=== PATIENT | male | born 1965 | race Caucasian/White ===

== ENCOUNTER 2019-01-15 20:06 | Observation (INO) ==
[2019-01-15] MEDS ORDERED: ACETAMINOPHEN 500 MG TAB PO STA (20:42)
[2019-01-15 20:52] LABS: Basophils # (auto) 0.03 K/uL (0-0.2); Basophils % (auto) 0.4 %; Eosinophils % (auto) 2.5 %; Hematocrit (blood only) 39.8 % (42-52); Hemoglobin 12.2 g/dL (14.0-18.0); Immature Granulocytes # (auto) 0.02 K/uL (0.00-0.02); Immature Granulocytes % (auto) 0.3 %; Lymphocytes # (auto) 2.56 K/uL (1.2-3.4); Lymphocytes % (auto) 32.2 %; Mean Corpuscular Hgb Conc 30.7 g/dL (32-36); Mean Corpuscular Volume 72.4 fL (80-100); Mean Platelet Volume 9.4 fL (7.4-10.4); Monocytes # (auto) 0.52 K/uL (0.11-0.59); Monocytes % (auto) 6.5 %; Neutrophils # (auto) 4.61 K/uL (1.4-6.5); Neutrophils % (auto) 58.1 %; Platelet Count 372 K/uL (130-400); RDW Coefficient of Variation 17.7 % (11.5-14.5); RDW Standard Deviation 46.9 fL (36.4-46.3); White Blood Count 7.94 K/uL (4.8-10.8)
[2019-01-15 21:06] LABS: Alanine Aminotransferase 22 U/L (12-78); Albumin Level 3.3 gm/dl (3.4-5.0); Aspartate Aminotransferase 17 U/L (15-37); BUN Creatinine Ratio 7.4 (10-20); Blood Urea Nitrogen 7 mg/dl (7-18); Calcium 8.5 mg/dl (8.5-10.1); Carbon Dioxide 29 mmol/L (21-32); Chloride 107 mmol/L (98-107); Est GFR (African American) 102.9; Est GFR (Non-African American) 88.8; Glucose 96 mg/dl (70-99); Potassium 3.9 mmol/L (3.5-5.1); Sodium 142 mmol/L (136-145)
--- NOTE | 2019-01-15 21:06 | XRay Report ---
SINGLE VIEW CHEST CLINICAL HISTORY: Atypical chest pain. FINDINGS: An AP, portable, upright chest radiograph is obtained. No prior studies are available for c omparison at the time of dictation. The examination is degraded by portable technique and patient ro tation. The cardiomediastinal silhouette is unremarkable. There is elevation of right hemidiaphragm. The lungs and pleural spaces are clear. No pneumothorax is seen. The bony thorax is grossly intact. IMPRESSION: No active disease in the chest. Electronically signed by: Bertin Trejo M.D. 01/15/2019 9:05 PM
[2019-01-15 21:07] LABS: Partial Thromboplastin Ratio 0.9; Partial Thromboplastin Time 25.4 Seconds (21.0-31.0); Prothrombin Time 10.1 Seconds (9.0-12.0)
[2019-01-15 21:10] LABS: Albumin Globulin Ratio 0.8 (0.9-2); Alkaline Phosphatase 123 U/L (45-117); Bilirubin,Total 0.4 mg/dl (0.2-1); Globulin 4.2 gm/dl (2.5-4.0); Total Protein 7.5 gm/dl (6.4-8.2); Troponin I < 0.015 ng/ml (0-0.045)
[2019-01-15 21:35] LABS: Anisocytosis Present; Ovalocytes 1+
--- NOTE | 2019-01-15 23:18 | History & Physical Report ---
Date of Service January 15, 2019 Assessment & Plan (1) Angina at rest: 53-year-old male here to evaluate his chest pain. His care is usually in [place] and I do not currently have access to those records. Assessment: Unstable angina Plan -Monitor on telemetry -Echo in the a.m. -Trend troponins. Initial troponin negative. -Continue home medications including baby aspirin, Lopressor 50 mg twice daily, CHF medications as below. Does not appear to be in a CHF exacerbation given exam, chest x-ray. FEN/GI: No fluids indicated at this time. Cautioned against fluids given CHF. DVT ppx: SCDs CODE STATUS: Full code as discussed with patient DISPO: Telemetry (2) CHF (congestive heart failure): Unsure if this is preserved or reduced ejection fraction. Patient did see his services mgr 3 months ago and an echocardiogram was apparently done then and patient says there were no changes. -Continue home torsemide 100 mg daily, Klor-Con 40 mEq twice daily, Lopressor 50 twice daily. -Echo in a.m. (3) Obesity: Recommend ongoing diet and exercise. (4) Depression: Continue home Abilify 2 mg daily and Cymbalta 60 mg daily. (5) Seasonal allergies: Continue home Singulair and Ventolin as needed (6) Nocturnal hypoxia: On 2 L at night, continue. (7) Gout: Allopurinol. History of Present Illness Chief Complaint: Chest pain Primary Care Provider: [facility] This is a 53-year-old male with past medical history significant for congestive heart failure who is followed by Dr. Lees and Dr. Veronica services mgr in [place]. He states he was in his usual state of health until earlier this evening he was sitting watching television when he suddenly felt a pressure in his left chest that radiated down his left arm. He says he began to have be short of breath during this and so put on his oxygen, which he normally wears as at night 2 L. He was sitting there in his partner Alis noticed he was uncomfortable and asked him what the matter was. He told her and she called EMS. He states he took a nitro pill at home that did not resolve the pain, but the second 1 he got in route did help resolve the pain. His chest pain lasted 45 minutes. Currently he is chest pain-free. Of note, he says he saw his services mgr 3 months ago and an echocardiogram was done then which he says was stable. He was diagnosed with CHF 2 years ago after having gained 100 pounds says the patient. He admits he does not follow a low- salt diet and he is not aware of a fluid restriction. He denies any other symptoms like abdominal pain, visual changes, headache, diarrhea, numbness and tingling in his extremities. Of note he says he is at his dry weight. He is compliant with all his medications. He is not diabetic. ED course: Normotensive, not tachycardic not febrile, not hypoxic. CBC remarkable for microcytic anemia, H&H 12.2/39.8. Coag normal. Chemistry unremarkable, negative troponin x1. Chest x-ray shows no acute findings. EKG reviewed and shows sinus rhythm 91 rate, QTC 462, occasional PVCs, no appreciable ST changes. Given Tylenol in the ED. Past medical history: As above Surgical history: Right hip replacement, nephrectomy Social history: Disabled, unemployed. Lives with his partner of 11 years Alis. Denies drinking or illicit drug use. He does chew snuff, has since age 12. One can a day. Has never considered quitting. Allergies Allergy/AdvReac Type Severity Reaction Status Date / Time Cephalosporins Allergy Mild SWELLING Unverified 03/15/11 17:50 Home Medications Home Medications Medication Instructions Recorded Confirmed Type albuterol sulfate [Ventolin HFA] 2 puff INHALATION BID 01/15/19 01/15/19 History allopurinol 100 mg PO BID 01/15/19 01/15/19 History aripiprazole [Abilify] 2 mg PO DAILY 01/15/19 01/15/19 History aspirin [Aspir-81] 81 mg PO DAILY 01/15/19 01/15/19 History calcitriol [Rocaltrol] 0.25 mcg PO DAILY 01/15/19 01/15/19 History cholecalciferol (vitamin D3) 1,000 unit PO DAILY 01/15/19 01/15/19 History [Vitamin D3] duloxetine [Cymbalta] 60 mg PO DAILY 01/15/19 01/15/19 History metoprolol tartrate [Lopressor] 50 mg PO BID 01/15/19 01/15/19 History montelukast [Singulair] 10 mg PO DAILY 01/15/19 01/15/19 History potassium chloride [Klor-Con M20] 40 meq PO BID 01/15/19 01/15/19 History torsemide 100 mg PO DAILY 01/15/19 01/15/19 History Past Med/Surg History Medical History Gout (Chronic) Nocturnal hypoxia (Chronic) On 2 L at night Depression (Chronic) Obesity (Chronic) CHF (congestive heart failure) (Chronic) Heart failure (Chronic) Surgical History History of nephrectomy, unilateral History of total right hip arthroplasty Social History Preferred Language: Armenian Beliefs That Will Affect Care: None marital status details: Lives with his partner Alis of 11 years. Current Living Situation: Significant Other current occupational status: unemployed and disabled Other Information That Helps Us Care for You: No Feels Safe at Home: Yes Safety Concerns: Feels Safe At This Time Smoking Status: Never smoker Hx Alcohol Use: No Hx Substance Use: No Review of Systems All systems reviewed & are unremarkable except as noted in HPI & below Physical Exam Vital Signs (Past 24 Hours): Last Vital Signs Temp 36.9 C 01/15/19 20:15 Pulse 79 01/15/19 22:42 Resp 19 01/15/19 22:42 BP 142/78 H 01/15/19 22:42 Pulse Ox 97 01/15/19 23:02 Physical Exam: Vitals noted as above and within normal limits with the e xception of very mild hypertension. GENERAL: Awake, alert to person, place, and time, nontoxic-appearing, in no distress HENT: Normocephalic, atraumatic. . Mucus membranes appear moist. EYES: Normal conjunctiva. Sclera non-icteric. EOMI. NECK: Supple. Full range of motion. No JVD RESPIRATORY: Clear to auscultation. Normal work of breathing. CARDIAC: Regular rate, normal rhythm. Extremities warm and well perfused, 2+ radial pulses bilaterally; 2+ posterior tibialis pulses bilaterally. CHEST: Nontender to palpation over anterior chest. ABDOMEN: Soft, non-distended. No tenderness to palpation in all four quadrants. No rebound or guarding. No masses. Bowel sounds are normal. LOWER EXTREMITIES: Inspection of calves reveal equal size bilaterally. They are non-tender. Trace edema. No discoloration. NEURO: No focal gross focal motor deficits noted. Sensation in tact. CN II-XII grossly in tact. SKIN: Rash not present. No jaundice noted. Significant lesions not present. PSYCH: Appropriate mood and affect. Cooperative. Exam as done by Suzie Mcgovern MD, Statistical Machine Mechanic. Results & Data Laboratory Results 01/15/19 01/15/19 01/15/19 Range/Units 20:13 20:13 20:13 WBC 7.94 (4.8-10.8) K/uL RBC 5.50 (4.7-6.1) M/uL Hgb 12.2 L (14.0-18.0) g/dL Hct 39.8 L (42-52) % MCV 72.4 L (80-100) fL MCH 22.2 L (25-34) pg MCHC 30.7 L (32-36) g/dL RDW Std Deviation 46.9 H (36.4-46.3) fL RDW Coeff of Jerry 17.7 H (11.5-14.5) % Plt Count 372 (130-400) K/uL MPV 9.4 (7.4-10.4) fL Immature Gran % (Auto) 0.3 % Neut % (Auto) 58.1 % Lymph % (Auto) 32.2 % Garvin % (Auto) 6.5 % Eos % (Auto) 2.5 % Baso % (Auto) 0.4 % Immature Gran # (Auto) 0.02 (0.00-0.02) K/uL Neut # (Auto) 4.61 (1.4-6.5) K/uL Lymph # (Auto) 2.56 (1.2-3.4) K/uL Garvin # (Auto) 0.52 (0.11-0.59) K/uL Eos # (Auto) 0.20 (0-0.5) K/uL Baso # (Auto) 0.03 (0-0.2) K/uL Anisocytosis Present Ovalocytes 1+ PT 10.1 (9.0-12.0) Seconds INR 1.0 (0.9-1.1) APTT 25.4 (21.0-31.0) Seconds PTT Ratio 0.9 Sodium 142 (136-145) mmol/L Potassium 3.9 (3.5-5.1) mmol/L Chloride 107 (98-107) mmol/L Carbon Dioxide 29 (21-32) mmol/L Anion Gap 6.0 (3-11) BUN 7 (7-18) mg/dl Creatinine 0.97 (0.6-1.4) mg/dl Est Cr Clr Drug Dosing 99.0 ml/min Est GFR ( Amer) 102.9 Est GFR (Non-Af Amer) 88.8 BUN/Creatinine Ratio 7.4 L (10-20) Glucose 96 (70-99) mg/dl Calcium 8.5 (8.5-10.1) mg/dl Magnesium 2.0 (1.8-2.4) mg/dl Total Bilirubin 0.4 (0.2-1) mg/dl AST 17 (15-37) U/L ALT 22 (12-78) U/L Alkaline Phosphatase 123 H (45-117) U/L Troponin I < 0.015 (0-0.045) ng/ml Total Protein 7.5 (6.4-8.2) gm/dl Albumin 3.3 L (3.4-5.0) gm/dl Globulin 4.2 H (2.5-4.0) gm/dl Albumin/Globulin Ratio 0.8 L (0.9-2) Lipase 188 (73-393) U/L Supervising Physician Co-Signing Physician Notes Attending addendum: I have physically seen this patient, have supervised the medical residents activities, and agree with the H&P unless as otherwise noted. Assessment and Plan: Chest pain/hypertension/CHF-- The patient will be admitted to telemetry for serial cardiac enzymes, serial EKG's, cardiac rhythm monitoring and a 2-D echocardiogram with Dopplers. Continue aspirin, Lopressor, torsemide and potassium. Consult cardiology. Coordinate with his services mgr in [place]. Depression-- Continue Abilify and Cymbalta. Remainder of orders and notations as noted. Resident Activity Tracking Resident Involvement: Resident Care Provided Care Provided: Adult Hospital Medicine
[2019-01-16] MEDS ORDERED: POLYETHYLENE (MIRALAX) 17 GM PACK PO PRN (00:48)
[2019-01-16] MEDS ORDERED: MAGNESIUM HYDROXIDE SUSP 30 ML UDC PO PRN (00:48)
[2019-01-16] MEDS ORDERED: ALUMINUM/MAGNESIUM SUSP 30 ML UDC PO PRN (00:48)
[2019-01-16] MEDS ORDERED: ACETAMINOPHEN 325 MG TAB PO PRN (00:48)
[2019-01-16] MEDS ORDERED: NITROGLYCERIN SL 0.4 MG/TAB TAB SL PRN (00:48)
[2019-01-16] MEDS ORDERED: MoRPHine SULFATE 2 MG/ML CARP IV ONE (01:03)
--- NOTE | 2019-01-16 01:33 | Emergency Department Note ---
Entered by Camille Badillo acting as a scribe for History of Present Illness General Chief complaint: Chest Pain Stated complaint: CHEST PAIN Time Seen by Provider: 01/15/19 20:24 Source: patient and family () History of Present Illness Onset (ago): hour(s) (several) Location: chest (left-sided) Radiation: extremity (left arm) Pain Consistency: + now resolved Relieved By: + medication (Aspirin; Nitro) Associated symptoms: + fever/chills (positive fever; negative chills), + headaches and + shortness of breath Treatments prior to arrival: aspirin and other (Nitro) The patient is a 53 year old white male w/ PMHx of heart failure who presents to the ED w/ CC of now resolved left-sided chest pain beginning several hours prior to arrival. The patient states that his pain was radiating down his left arm. He states that he had shortness of breath and headache at this time. The patient states that he has had fevers, but denies chills. He states that he was given 325 mg of aspirin and 1 Nitro prior to arrival for his symptoms. The patient denies recent swelling in his legs. Per the patient's , the patient recently had hip surgery. The patient's states that the patient was seen in the [place] ED 2 days ago for possible infection, but states that it is unclear whether the patient has an infection or not. The patient states that he is on oxygen when needed. Home Medications Home Medications Medication Instructions Recorded Confirmed Type albuterol sulfate [Ventolin HFA] 2 puff INHALATION BID 01/15/19 01/15/19 History allopurinol 100 mg PO BID 01/15/19 01/15/19 History aripiprazole [Abilify] 2 mg PO DAILY 01/15/19 01/15/19 History aspirin [Aspir-81] 81 mg PO DAILY 01/15/19 01/15/19 History calcitriol [Rocaltrol] 0.25 mcg PO DAILY 01/15/19 01/15/19 History cholecalciferol (vitamin D3) 1,000 unit PO DAILY 01/15/19 01/15/19 History [Vitamin D3] duloxetine [Cymbalta] 60 mg PO DAILY 01/15/19 01/15/19 History metoprolol tartrate [Lopressor] 50 mg PO BID 01/15/19 01/15/19 History montelukast [Singulair] 10 mg PO DAILY 01/15/19 01/15/19 History potassium chloride [Klor-Con M20] 40 meq PO BID 01/15/19 01/15/19 History torsemide 100 mg PO DAILY 01/15/19 01/15/19 History Allergies Allergy/AdvReac Type Severity Reaction Status Date / Time Cephalosporins Allergy Mild SWELLING Unverified 03/15/11 17:50 Past Med/Surg History Medical History Gout (Chronic) Nocturnal hypoxia (Chronic) On 2 L at night Depression (Chronic) Obesity (Chronic) CHF (congestive heart failure) (Chronic) Heart failure (Chronic) Surgical History History of nephrectomy, unilateral History of total right hip arthroplasty Social History Preferred Language: Trinidadian Communication Ability: Effective Ram Press Operator Required: No Beliefs That Will Affect Care: None marital status details: Lives with his partner Alis of 11 years. Current Living Situation: Significant Other current occupational status: unemployed and disabled Other Information That Helps Us Care for You: No Feels Safe at Home: Yes Safety Concerns: Feels Safe At This Time Smoking Status: Never smoker Hx Alcohol Use: No Hx Substance Use: No Review of Systems See HPI for pertinent positives & negatives. and A total of 10 systems reviewed and were otherwise negative Physical Exam Vital Signs Vital Signs - 24 hr 01/15/19 20:15 01/15/19 20:31 01/15/19 20:46 Temperature 36.9 C Temperature Source Oral Sepsis Recent Fever Within 48 Hours No Sepsis Action Taken by Nursing No Action Required Pulse Rate 92 H 75 96 H Pulse Rate [Right Finger] Pulse Rate from SpO2 Sensor 75 93 H Pulse Rhythm Regular Pulse Rhythm [Right Finger] Pulse Strength Normal Pulse Strength [Right Finger] Respiratory Rate 17 19 Respiratory Effort / Characteristics Non-Labored Accessory Muscle Use Respiratory Depth Normal Respiratory Pattern Blood Pressure 135/90 132/88 Blood Pressure [Right Arm] Blood Pressure Mean 105 102 Blood Pressure Mean [Right Arm] Blood Pressure Position Lying Blood Pressure Position [Right Arm] Pulse Oximetry 97 97 94 Oxygen Delivery Method Room Air 01/15/19 21:00 01/15/19 21:01 01/15/19 22:03 Temperature Temperature Source Sepsis Recent Fever Within 48 Hours Sepsis Action Taken by Nursing Pulse Rate 90 86 Pulse Rate [Right Finger] 80 Pulse Rate from SpO2 Sensor 65 81 Pulse Rhythm Pulse Rhythm [Right Finger] Pulse Strength Pulse Strength [Right Finger] Respiratory Rate 27 H 26 H 18 Respiratory Effort / Characteristics Respiratory Depth Respiratory Pattern Blood Pressure 136/86 Blood Pressure [Right Arm] 160/90 H Blood Pressure Mean 102 Blood Pressure Mean [Right Arm] 113 Blood Pressure Position Blood Pressure Position [Right Arm] Pulse Oximetry 93 95 94 Oxygen Delivery Method 01/15/19 22:42 01/15/19 23:01 01/15/19 23:02 Temperature Temperature Source Sepsis Recent Fever Within 48 Hours Sepsis Action Taken by Nursing Pulse Rate 75 71 Pulse Rate [Right Finger] 79 Pulse Rate from SpO2 Sensor 74 67 Pulse Rhythm Pulse Rhythm [Right Finger] Pulse Strength Pulse Strength [Right Finger] Respiratory Rate 19 21 21 Respiratory Effort / Characteristics Respiratory Depth Respiratory Pattern Blood Pressure 148/91 H Blood Pressure [Right Arm] 142/78 H Blood Pressure Mean 110 Blood Pressure Mean [Right Arm] 99 Blood Pressure Position Blood Pressure Position [Right Arm] Pulse Oximetry 96 95 96 Oxygen Delivery Method Room Air 01/15/19 23:30 01/15/19 23:31 01/16/19 00:00 Temperature Temperature Source Sepsis Recent Fever Within 48 Hours Sepsis Action Taken by Nursing Pulse Rate 73 74 73 Pulse Rate [Right Finger] Pulse Rate from SpO2 Sensor 57 L 74 69 Pulse Rhythm Pulse Rhythm [Right Finger] Pulse Strength Pulse Strength [Right Finger] Respiratory Rate 21 23 23 Respiratory Effort / Characteristics Respiratory Depth Respiratory Pattern Blood Pressure 126/81 Blood Pressure [Right Arm] Blood Pressure Mean 96 Blood Pressure Mean [Right Arm] Blood Pressure Position Blood Pressure Position [Right Arm] Pulse Oximetry 96 94 92 Oxygen Delivery Method 01/16/19 00:01 01/16/19 00:31 01/16/19 00:55 Temperature 36.7 C Temperature Source Oral Sepsis Recent Fever Within 48 Hours Sepsis Action Taken by Nursing Pulse Rate 73 70 Pulse Rate [Right Finger] 69 Pulse Rate from SpO2 Sensor 74 Pulse Rhythm Pulse Rhythm [Right Finger] Regular Pulse Strength Pulse Strength [Right Finger] Normal Respiratory Rate 23 16 18 Respiratory Effort / Characteristics Non-Labored Spontaneous Respiratory Depth Normal Respiratory Pattern Regular Blood Pressure 133/86 132/77 Blood Pressure [Right Arm] 151/89 H Blood Pressure Mean 101 Blood Pressure Mean [Right Arm] 109 Blood Pressure Position Blood Pressure Position [Right Arm] Lying Pulse Oximetry 94 95 95 Oxygen Delivery Method Room Air Room Air GENERAL: Well appearing, well nourished, NAD, non-toxic. Appears older than stated age. Wearing glasses. EYE EXAM: Normal conjunctiva. PERRL, no anisocoria and EOM's grossly intact w/o pain. OROPHARYNX: Moist MM. Edentulous. NECK: Supple, no nuchal rigidity, no adenopathy, non-tender. No signs of meningismus. LUNGS: Clear to auscultation. Normal chest wall mechanics. HEART: NSR, no MRG. ABDOMEN: Abdomen soft, non-tender, normo-active bowel sounds, no masses, no rebound or guarding. BACK: No CVA TTP. SKIN: No rashes and no bruising. UPPER EXTREMITIES: Upper extremities are grossly normal. LOWER EXTREMITIES: No pitting edema. No calf pain. Negative Quita's sign. Open wound of the right hip likely granulation tissue forming. Not malodorous. No erythema around the site. NEURO EXAM: A and O x3. GCS 15. Moves all 4 extremities on command w/o issue. Course 2034: Past medical records reviewed. The patient was evaluated in room A10, and a complete history and physical examination were performed. 2250: [facility] further [facility] the patient. Consultations Consultation #1: I discussed the [facility] who will further evaluate the patient. Time: 22:50 Administered Medications Discontinued Medications Acetaminophen (Tylenol) 1,000 mg PO NOW STA Stop: 01/15/19 20:43 Last Admin: 01/15/19 20:47 Dose: 1,000 mg Documented by: [id number] Morphine Sulfate (Morphine Sulfate) 0.5 mg IV ONE ONE Stop: 01/16/19 01:04 Last Admin: 01/16/19 01:18 Dose: 0.5 mg Documented by: [id number] Medical Decision Making Medical Records Attestation: I reviewed the patient's medical records. Home Medications Current Medication List: was personally reviewed by me Laboratory Data Attestation: I reviewed the patient's lab results. Result diagrams: 01/15/19 20:13 01/15/19 20:13 Lab Results 01/15/19 01/15/19 01/15/19 Range/Units 20:13 20:13 20:13 WBC 7.94 (4.8-10.8) K/uL RBC 5.50 (4.7-6.1) M/uL Hgb 12.2 L (14.0-18.0) g/dL Hct 39.8 L (42-52) % MCV 72.4 L (80-100) fL MCH 22.2 L (25-34) pg MCHC 30.7 L (32-36) g/dL RDW Std Deviation 46.9 H (36.4-46.3) fL RDW Coeff of Jerry 17.7 H (11.5-14.5) % Plt Count 372 (130-400) K/uL MPV 9.4 (7.4-10.4) fL Immature Gran % (Auto) 0.3 % Neut % (Auto) 58.1 % Lymph % (Auto) 32.2 % Boundary % (Auto) 6.5 % Eos % (Auto) 2.5 % Baso % (Auto) 0.4 % Immature Gran # (Auto) 0.02 (0.00-0.02) K/uL Neut # (Auto) 4.61 (1.4-6.5) K/uL Lymph # (Auto) 2.56 (1.2-3.4) K/uL Boundary # (Auto) 0.52 (0.11-0.59) K/uL Eos # (Auto) 0.20 (0-0.5) K/uL Baso # (Auto) 0.03 (0-0.2) K/uL Anisocytosis Present Ovalocytes 1+ PT 10.1 (9.0-12.0) Seconds INR 1.0 (0.9-1.1) APTT 25.4 (21.0-31.0) Seconds PTT Ratio 0.9 Sodium 142 (136-145) mmol/L Potassium 3.9 (3.5-5.1) mmol/L Chloride 107 (98-107) mmol/L Carbon Dioxide 29 (21-32) mmol/L Anion Gap 6.0 (3-11) BUN 7 (7-18) mg/dl Creatinine 0.97 (0.6-1.4) mg/dl Est Cr Clr Drug Dosing 99.0 ml/min Est GFR ( Amer) 102.9 Est GFR (Non-Af Amer) 88.8 BUN/Creatinine Ratio 7.4 L (10-20) Glucose 96 (70-99) mg/dl Calcium 8.5 (8.5-10.1) mg/dl Magnesium 2.0 (1.8-2.4) mg/dl Total Bilirubin 0.4 (0.2-1) mg/dl AST 17 (15-37) U/L ALT 22 (12-78) U/L Alkaline Phosphatase 123 H (45-117) U/L Troponin I < 0.015 (0-0.045) ng/ml Total Protein 7.5 (6.4-8.2) gm/dl Albumin 3.3 L (3.4-5.0) gm/dl Globulin 4.2 H (2.5-4.0) gm/dl Albumin/Globulin Ratio 0.8 L (0.9-2) Lipase 188 (73-393) U/L Imaging Data Radiologist's Impression: Radiology results as stated below per my review and the radiologist's interpretation: SINGLE VIEW CHEST CLINICAL HISTORY: Atypical chest pain. FINDINGS: An AP, portable, upright chest radiograph is obtained. No prior studies are available for comparison at the time of dictation. The examination is degraded by portable technique and patient rotation. The cardiomediastinal silhouette is unremarkable. There is elevation of right hemidiaphragm. The lungs and pleural spaces are clear. No pneumothorax is seen. The bony thorax is grossly intact. IMPRESSION: No active disease in the chest. Electronically signed by: Bertin Trejo M.D. 01/15/2019 9:05 PM ECG Data Attestation: I personally reviewed and interpreted this ECG as follows: Indication: chest pain Rate (beats per minute): 91 Rhythm: sinus with SA Findings: + other (normal intervals and axis ) and + PVC; no acute ischemic change Comparison ECG Date: from (pre-hospital) Change: no significant change Additional Comments: Pre-hospital ECG: Sinus rhythm with sinus arrhythmia. PVCs noted. No ischemic change. Blood Pressure Blood Pressure Findings: Normal blood pressure MDM Narrative The patient is a 53 year old white male w/ PMHx of heart failure who presents to the ED w/ CC of now resolved left-sided chest pain beginning several hours prior to arrival. Differential diagnosis: Etiologies such as shingles, musculoskeletal pain, pericarditis, myocarditis, cardiac ischemia, pericardial tamponade, pneumonia, pneumothorax, pleural effusion, hemothorax, pleurisy, aortic pathology, pulmonary embolism, intra- abdominal process, as well as others were considered. Patient was seen and evaluated the bedside. The patient did present after having acute onset of left-sided chest pain with radiation to left arm. The patient did receive a full dose aspirin and nitro in route. Upon presentation the patient did not have any further chest pains. The patient does have a known history of CHF and is not compliant with his torsemide diuretic. The patient also does use smokeless tobacco. The patient was counseled on tobacco cessation. Even the patient's associated concerning chest pain story and the fact that he did get nitro which relieved his pain patient does have a heart score of 4 I believe would benefit from continued troponin trending. I did discuss patient with the on-call hospitalist who agreed to further evaluate treat the patient. Patient was admitted for observation and further cardiac testing. Impression & Plan Atypical chest pain, Encounter for tobacco use cessation counseling Discharge Plan Visit Data *Final* Discharge Date/Time: 01/16/19 00:31 Chief Complaint: Chest Pain Stated Complaint: CHEST PAIN ED Provider: Diallo Villafuerte Discharge Problem: Atypical chest pain, Encounter for tobacco use cessation counseling Patient Disposition: Admitted As Inpatient Discharge Instructions Interventions: ED Discharge Assessment Last Done: 01/16/19 00:31 The scribe's documentation has been prepared under my direction and personally reviewed by me in its entirety. I confirm that the note above accurately reflects all work, treatment, procedures, and medical decision making performed by me.
[2019-01-16] MEDS ORDERED: KETOROLAC 30 MG/ML VIAL IV ONE (02:09)
[2019-01-16 02:38] LABS: Blood Urea Nitrogen 8 mg/dl (7-18); Calcium 8.5 mg/dl (8.5-10.1); Carbon Dioxide 28 mmol/L (21-32); Chloride 108 mmol/L (98-107); Est GFR (African American) 114.2; Est GFR (Non-African American) 98.5; Glucose 108 mg/dl (70-99); Potassium 3.6 mmol/L (3.5-5.1); Sodium 141 mmol/L (136-145)
[2019-01-16 02:43] LABS: Troponin I < 0.015 ng/ml (0-0.045)
[2019-01-16] MEDS ORDERED: PNEUMOCOCCAL ADMINISTRATION CHARGE ONE (05:00)
[2019-01-16] MEDS ORDERED: PNEUMOCOCCAL POLYSACCHARIDES 25 MCG/0.5 ML VIAL/SYR IM ONE (05:00)
[2019-01-16 07:18] LABS: Basophils # (auto) 0.03 K/uL (0-0.2); Basophils % (auto) 0.5 %; Eosinophils # (auto) 0.15 K/uL (0-0.5); Eosinophils % (auto) 2.6 %; Hematocrit (blood only) 39.9 % (42-52); Hemoglobin 12.2 g/dL (14.0-18.0); Lymphocytes # (auto) 1.97 K/uL (1.2-3.4); Lymphocytes % (auto) 34.4 %; Mean Corpuscular Hgb Conc 30.6 g/dL (32-36); Mean Corpuscular Volume 73.1 fL (80-100); Mean Platelet Volume 9.2 fL (7.4-10.4); Monocytes # (auto) 0.42 K/uL (0.11-0.59); Monocytes % (auto) 7.3 %; Neutrophils # (auto) 3.16 K/uL (1.4-6.5); Neutrophils % (auto) 55.2 %; Platelet Count 303 K/uL (130-400); RDW Coefficient of Variation 17.9 % (11.5-14.5); RDW Standard Deviation 47.6 fL (36.4-46.3); Red Blood Count 5.46 M/uL (4.7-6.1); White Blood Count 5.73 K/uL (4.8-10.8)
[2019-01-16 07:27] LABS: Prothrombin Time 10.4 Seconds (9.0-12.0)
[2019-01-16] MEDS ORDERED: PERFLUTREN LIPID MICROSPHERE (DEFINITY) IV ONE (08:10)
[2019-01-16 08:17] VITALS: O2SAT 95
[2019-01-16 08:18] LABS: RBC Morphology Unremarkable
[2019-01-16] MEDS ORDERED: METOPROLOL TARTRATE 50 MG TAB PO SCH (09:00)
[2019-01-16] MEDS ORDERED: ASPIRIN 81 MG ECTAB PO SCH (09:00)
[2019-01-16] MEDS ORDERED: ARIPIprazole 1 MG/ML ORAL SOLN 150 ML BTL PO SCH (09:00)
[2019-01-16] MEDS ORDERED: MONTELUKAST SODIUM 10 MG TABLET PO SCH (09:00)
[2019-01-16] MEDS ORDERED: DULOXETINE HCL 60 MG CAP PO SCH (09:00)
[2019-01-16] MEDS ORDERED: ALBUTEROL HFA 8 GM INHALER INH SCH (09:00)
[2019-01-16] MEDS ORDERED: CALCITRIOL 0.25 MCG CAPSULE PO SCH (09:00)
[2019-01-16] MEDS ORDERED: POTASSIUM CHLORIDE 20 MEQ TABCR PO SCH (09:00)
[2019-01-16] MEDS ORDERED: TORSEMIDE 20 MG TAB PO SCH (09:00)
[2019-01-16] MEDS ORDERED: CHOLECALCIFEROL 1,000 UNITS TAB PO SCH (09:00)
[2019-01-16] MEDS ORDERED: ALLOPURINOL 100 MG TAB PO SCH (09:00)
[2019-01-16 11:40] VITALS: BP 124/84; PULSE 70; TEMP 97.5
[2019-01-16] MEDS ORDERED: OXYCODONE/ACETAMINOPHEN 10-325 TAB PO ONE (12:11)
--- NOTE | 2019-01-16 16:29 | Discharge Summary ---
Date of Service January 16, 2019 Admission HPI Per Admitting Provider This is a 53-year-old male with past medical history significant for congestive heart failure who is followed by Dr. Lees and Dr. Veronica box maker wood in [place]. He states he was in his usual state of health until earlier this evening he was sitting watching television when he suddenly felt a pressure in his left chest that radiated down his left arm. He says he began to have be short of breath during this and so put on his oxygen, which he normally wears as at night 2 L. He was sitting there in his partner Alis noticed he was uncomfortable and asked him what the matter was. He told her and she called EMS. He states he took a nitro pill at home that did not resolve the pain, but the second 1 he got in route did help resolve the pain. His chest pain lasted 45 minutes. Currently he is chest pain-free. Of note, he says he saw his box maker wood 3 months ago and an echocardiogram was done then which he says was stable. He was diagnosed with CHF 2 years ago after having gained 100 pounds says the patient. He admits he does not follow a low- salt diet and he is not aware of a fluid restriction. He denies any other symptoms like abdominal pain, visual changes, headache, diarrhea, numbness and tingling in his extremities. Of note he says he is at his dry weight. He is compliant with all his medications. He is not diabetic. ED course: Normotensive, not tachycardic not febrile, not hypoxic. CBC remarkable for microcytic anemia, H&H 12.2/39.8. Coag normal. Chemistry unremarkable, negative troponin x1. Chest x-ray shows no acute findings. EKG reviewed and shows sinus rhythm 91 rate, QTC 462, occasional PVCs, no appreciable ST changes. Given Tylenol in the ED. Past medical history: As above Surgical history: Right hip replacement, nephrectomy Social history: Disabled, unemployed. Lives with his partner of 11 years Alis. Denies drinking or illicit drug use. He does chew snuff, has since age 12. One can a day. Has never considered quitting. Admission Exam Per Admitting Provider Vitals noted as above and within normal limits with the exception of very mild hypertension. GENERAL: Awake, alert to person, place, and time, nontoxic-appearing, in no distress HENT: Normocephalic, atraumatic. . Mucus membranes appear moist. EYES: Normal conjunctiva. Sclera non-icteric. EOMI. NECK: Supple. Full range of motion. No JVD RESPIRATORY: Clear to auscultation. Normal work of breathing. CARDIAC: Regular rate, normal rhythm. Extremities warm and well perfused, 2+ radial pulses bilaterally; 2+ posterior tibialis pulses bilaterally. CHEST: Nontender to palpation over anterior chest. ABDOMEN: Soft, non-distended. No tenderness to palpation in all four quadrants. No rebound or guarding. No masses. Bowel sounds are normal. LOWER EXTREMITIES: Inspection of calves reveal equal size bilaterally. They are non-tender. Trace edema. No discoloration. NEURO: No focal gross focal motor deficits noted. Sensation in tact. CN II-XII grossly in tact. SKIN: Rash not present. No jaundice noted. Significant lesions not present. PSYCH: Appropriate mood and affect. Cooperative. Principal Diagnosis Chest pain Discharge Exam Constitutional WD/WN, vitals as above Eyes PERRL, conjunctivae normal, anicteric sclerae ENMT external ear and nose normal, oropharynx normal Neck trachea midline, no thyromegaly Respiratory normal respiratory effort, lungs clear to auscultation Cardiovascular RRR, no murmur, no edema Gastrointestinal (Abdomen) normal bowel sounds, soft, nontender, no hepatosplenomegaly Musculoskeletal no cyanosis or clubbing, extremities motor strength 5/5 Hip: + hip abnormal to inpsection (large open wound) Skin no rashes, warm and dry Neurologic patellar DTR's 2+ bilat, sensation intact and PERRL, EOMI, accommodation nl, no face palsy, no dysarthria Psychiatric A+Ox3, euthymic affect Lymphatic no cervical or axillary lymphadenopathy Discharge Data Allergies Allergy/AdvReac Type Severity Reaction Status Date / Time Cephalosporins Allergy Mild SWELLING Unverified 03/15/11 17:50 Consultations 01/15/19 22:24 ED Decision to Admit Stat 01/16/19 00:48 Consult Case Management - Discharge Planning Routine Hospital Course (1) Angina at rest: 53-year-old male here to evaluate his chest pain. His care is usually in [place] and I do not currently have access to those records. no further chest pain after he took the second nitro en route to hospital EKG showed no signs of ischemia troponin x 3 sets was negative he had a normal resting echocardiogram within past three months that showed diastolic dysfunction reported that he had a stress echocardiogram less than a year ago prior to undergoing hip surgery he has no history of CAD patient chest pain free and wanting to go home said he would like to follow up with his box maker wood in [place] for consideration of stress testing d/c to home (2) CHF (congestive heart failure): Chronic diastolic heart failure -Continue home torsemide 100 mg daily, Klor-Con 40 mEq twice daily, Lopressor 50 twice daily. follow up with cardiology, no signs of volume overload (3) Obesity: Recommend ongoing diet and exercise. (4) Depression: Continue home Abilify 2 mg daily and Cymbalta 60 mg daily. (5) Seasonal allergies: Continue home Singulair and Ventolin as needed (6) Nocturnal hypoxia: On 2 L at night, continue. (7) Gout: Allopurinol. (8) Wound, open, hip or thigh: s/p LALITA with post op wound infection now concerns that the hip replacement is being rejected he follows with [facility] for possible new hip Total Time Total Time Spent Total Time Spent (In Minutes): 35 Total Time Includes: Examination of the Patient, Discharge Planning and Medication Reconciliation Discharge Plan Discharge Items Patient Disposition: Home - Self-Care Reason For Visit: ANGINA Discharge Diagnosis: Chest pain, no evidence of acute heart attack Condition: Good Discharge Goals: Decrease discomfort and Diagnostic testing Activity: Per 'Additional Instructions' section Activity Comment: no strenous activity until you see box maker wood, consider stress test Lifting: None Bathing: No limitations Sexual Activity: Wait until after follow-up appointment Exercise/Sports: Wait until after follow-up appointment Driving/Machine Use: No limitations Non-emergency contact: Primary Care Provider and Turbine Mechanic Call non-emergency contact if: you have any medication questions, your symptoms worsen, your pain is not controlled and you have a fever Follow-up/Referrals: Long Lees [Primary Care Provider] - Diet: Heart Healthy Addtl Provider Instructions: Medications: no changes Chest pain: no evidence of acute heart attack, troponin (heart enzymes) negative for three sets EKG without ischemic changes if you have chest pain again then use Nitro, can repeat dose every 15 minutes for up to three doses I would recommend that you call your box maker wood for follow up, consider dobutamine stress echocardiogram ultimately would leave it up to the discretion of your box maker wood Hip replacement and wound: follow up with ortho as scheduled Prescriptions: Continued allopurinol 100 mg tablet 100 mg PO BID RF: 0 aspirin [Aspir-81] 81 mg Tablet,Delayed Release (Dr/Ec) 81 mg PO DAILY RF: 0 potassium chloride [Klor-Con M20] 20 mEq tablet,ER particles/crystals 40 meq PO BID RF: 0 torsemide 100 mg tablet 100 mg PO DAILY RF: 0 metoprolol tartrate [Lopressor] 50 mg tablet 50 mg PO BID RF: 0 montelukast [Singulair] 10 mg tablet 10 mg PO DAILY RF: 0 albuterol sulfate [Ventolin HFA] 90 mcg/actuation Hfa Aerosol Inhaler 2 puff INHALATION BID RF: 0 calcitriol [Rocaltrol] 0.25 mcg capsule 0.25 mcg PO DAILY RF: 0 duloxetine [Cymbalta] 60 mg capsule,delayed release(DR/EC) 60 mg PO DAILY RF: 0 aripiprazole [Abilify] 2 mg tablet 2 mg PO DAILY RF: 0 cholecalciferol (vitamin D3) [Vitamin D3] 1,000 unit tablet 1,000 unit PO DAILY RF: 0 Stand-Alone Forms: Call Back Authorization, [facility] Discharge Orders: Discharge Order (Routine); Ordered 01/16/19 Ordered By: Elliot Brink Admission Data Admit Date/Time: 01/16/19 00:09 Attending Provider: Elliot Brink Admit Provider: Suzie Mcgovern Primary Care Provider: Long Lees Other Providers: Pee Easley Service: Telemetry Other Interventions: Discharge Summary Assessment (RN) Last Done: 01/16/19 12:42 DC Date/Time DO NOT enter until pt leaves facility: 01/16/19 13:53
== END 2019-01-16 13:53 | disposition home or self-care (01) ==
LOC: 2E 20:06 → ED 20:06 → SUATTDRO 01-16 00:09 → 2E 01-16 00:31